=== PATIENT | female | born 1965 ===

== ENCOUNTER 2019-02-22 11:45 | Day surgery (SDC) | payer BC ==
[~2019-02-22 11:45] MED LIST: Clindamycin Phosphate in D5W 300 MG in Premix Bag 1 BAG IV ONE
--- NOTE | 2019-02-22 12:25 | PCM.PREANE ---
Preanesthetic Assessment - Anesthesia/Transfusion/Family Hx Anesthesia History: Prior Anesthesia Without Reaction Family History of Anesthesia Reaction: No Transfusion History: No Prior Transfusion(s) Intubation History: Unknown - Review of Systems General: No Symptoms Pulmonary: No Symptoms Cardiovascular: No Symptoms Gastrointestinal: No Symptoms Neurological: No Symptoms Other: Reports: None - Physical Assessment Height: 5 ft 4 in Weight: 65.771 kg ASA Class: 2 Mental Status: Alert & Oriented x3 Airway Class: Mallampati = 2 Dentition: Reports: Normal Dentition Thyro-Mental Finger Breadths: 3 Mouth Opening Finger Breadths: 3 ROM/Head Extension: Full Lungs: Clear to Auscultation, Normal Respiratory Effort Cardiovascular: Regular Rate, Regular Rhythm - Allergies Allergies/Adverse Reactions: Allergies Allergy/AdvReac Type Severity Reaction Status Date / Time adhesive tape Allergy Redness Verified 02/18/19 12:51 aspirin Allergy Anaphylactic Verified 02/18/19 12:51 Shock banana Allergy Rash Verified 02/18/19 12:51 kiwi Allergy Rash Verified 02/18/19 12:51 latex Allergy Rash Verified 02/18/19 12:51 Penicillins Allergy Hives Verified 02/18/19 12:51 spironolactone Allergy Hives Verified 02/18/19 12:51 - Blood Blood Available: No - Anesthesia Plan Pre-Op Medication Ordered: None - Acknowledgements Anesthesia Type Planned: MAC Pt an Appropriate Candidate for the Planned Anesthesia: Yes Alternatives and Risks of Anesthesia Discussed w Pt/Guardian: Yes Pt/Guardian Understands and Agrees with Anesthesia Plan: Yes PreAnesthesia Questionnaire HEENT History: Reports: Other (See Below) Other HEENT History: wears glasses Cardiovascular History: Reports: Other (See Below) Other Cardiovascular History: hx of superficial blood clot in left calf- no treatment Respiratory History: Reports: Asthma (mild) Other Respiratory History: rarely uses inhaler Gastrointestinal History: Reports: Chronic Constipation, Other (See Below) Other Gastrointestinal History: occasional heartburn- takes OTC meds 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: Reports: Endometriosis Musculoskeletal History: Reports: Back Pain, Chronic, Fracture, Fibromyalgia Other Musculoskeletal History: hx of fx left wrist Neurological History: Reports: Migraines Psychiatric History: Reports: Anxiety, Depression Endocrine/Metabolic History: Reports: Hypothyroidism - Past Surgical History Head Surgeries/Procedures: Reports: None GI Surgical History: Reports: Appendectomy, Colonoscopy, EGD Female Surgical History: Reports: Hysterectomy Neurological Surgical History: Reports: Lumbar Spine, Spinal Fusion Musculoskeletal Surgical History: Reports: Other (See Below) Other Musculoskeletal Surgeries/Procedures:: excision of neuroma and metatarsal osteotomy right foot, tenotomy left 4th toe, hammer toe repair left foot - SUBSTANCE USE Smoking Status *Q: Former Smoker Tobacco Use Within Last Twelve Months: No Recreational Drug Use History: No - HOME MEDS Home Medications: Home Meds Albuterol [Proventil HFA] 2 puff INH QID PRN 02/18/19 [History] Baclofen 5 - 10 mg PO TID PRN 02/18/19 [History] Calcium Lactate 600 mg PO DAILY 02/18/19 [History] Cetirizine [ZyrTEC] 20 mg PO DAILY 02/18/19 [History] Cholecalciferol (Vitamin D3) [Vitamin D3] 5,000 unit PO DAILY 02/18/19 [History] Cyanocobalamin/FA/Pyridoxine [Folbic] 1 tab PO BID 02/18/19 [History] DULoxetine [Cymbalta] 60 mg PO BID 02/18/19 [History] Fish Oil/Faulkner-3 Fatty Acids [Fish Oil 1,000 MG] 1,000 mg PO DAILY 02/18/19 [ History] Levothyroxine 75 mcg PO DAILY 02/18/19 [History] Liothyronine [Cytomel] 12.5 mcg PO DAILY 02/18/19 [History] Montelukast [Singulair] 10 mg PO QPM 02/18/19 [History] Multivitamin [Multi-Vitamin Daily] 1 tab PO DAILY 02/18/19 [History] SUMAtriptan [Imitrex] 50 mg PO ASDIRECTED PRN 02/18/19 [History] Topiramate [Topamax] 100 mg PO DAILY 02/18/19 [History] Venlafaxine [Effexor] 75 mg PO DAILY 02/18/19 [History] oxyCODONE 5 mg PO QID PRN 02/18/19 [History] traZODone HCl [Trazodone HCl] 100 mg PO BEDTIME PRN 02/18/19 [History] - CURRENT (IN HOUSE) MEDS Current Meds: Current Medications Discontinued Medications Clindamycin Phosphate 300 mg/ (Premix) 50 mls @ 96.154 mls/hr IV ONETIME ONE Stop: 02/22/19 11:20 Lidocaine HCl (Xylocaine-Mpf 1%) 10 ml INJECT ONETIME ONE Stop: 02/22/19 10:48
[2019-02-22] MEDS ORDERED: fentaNYL 100 MCG/2 ML SDV ONE (12:56)
[2019-02-22] MEDS ORDERED: fentaNYL 250 MCG/5 ML SDV ONE (12:56)
[2019-02-22] MEDS ORDERED: Midazolam 1 MG/ML 2 ML SDV ONE (12:56)
[2019-02-22] MEDS ORDERED: Propofol 200 MG/20 ML SDV ONE (12:56)
[2019-02-22] MEDS ORDERED: Lidocaine 2% 5 ML SDV ONE (12:59)
[2019-02-22] MEDS ORDERED: Clindamycin Phosphate in D5W 300 MG in Premix Bag 1 BAG IV ONE ×2 (13:15)
--- NOTE | 2019-02-22 14:06 | PCM.POSTAN ---
POST ANESTHESIA ASSESSMENT - MENTAL STATUS Mental Status: Alert, Oriented - RESPIRATORY Respiratory Status: Respiratory Rate WNL, Airway Patent, O2 Saturation Stable - CARDIOVASCULAR CV Status: Pulse Rate WNL, Blood Pressure Stable - GASTROINTESTINAL GI Status: No Symptoms - PAIN Pain Score: 0 - POST OP HYDRATION Hydration Status: Adequate & Stable - OBSERVATIONS Free Text/Narrative:: no anesthesia problems, patient skipped recovery room stage of postoperative care
--- NOTE | 2019-02-22 17:35 | OR ---
SURGEON: Jackie Corrales D.O. DATE OF PROCEDURE: 02/22/2019 PRIMARY SURGEON: Jackie Corrales D.O. ASSISTANTS: OR staff present: 1. Navi Montesinos. 2. Eliz Jiménez. 3. Vibha Rocha. 4. technical administrator. PREOPERATIVE DIAGNOSES: 1. Failed back surgery syndrome. 2. Chronic lumbar radiculopathy. 3. Chronic low back pain. POSTOPERATIVE DIAGNOSES: 1. Failed back surgery syndrome. 2. Chronic lumbar radiculopathy. 3. Chronic low back pain. PROCEDURES PERFORMED: 1. Casengo Infinion 16, 50 cm, 16-contact trial lead placed to the top of T7 midline. 2. Fluoroscopic guidance for needle placement. 3. Local with MAC sedation. ANESTHESIA: Monitored anesthesia care with REPAIR SERVICER. SCREENING QUESTIONS: The patient answered no to all the following questions: 1. Are you allergic to iodine, Betadine, or latex? 2. Do you have a bleeding disorder? 3. Are you on anti-inflammatories or blood thinners? 4. Are you ? 5. Do you have any current local or systemic infections? 6. Do you have any joint replacements, heart valve replacements or a pacemaker? DESCRIPTION OF PROCEDURE: The patient had the procedure thoroughly explained including risks, benefits, and alternatives. Consent was signed in my clinic indicating understanding and willingness to proceed. The patient presented to [facility] and was escorted to the dressing room to disrobe and change into a hospital gown. Preoperative history and screening were performed by the nurse. Vital signs were taken and stable. The patient was set up with an IV prior to the procedure. The patient was brought back to the procedure room and placed in the prone position on the procedure room table. A pillow was placed under the abdomen in order to flatten the lumbar lordosis. The patient was positioned comfortably and there was no evidence of infection at the sites of needle insertion. The back was prepped with ChloraPrep and sterilely draped. All personnel in the operating room were dressed in appropriate attire including surgical scrubs, head and shoe covers. This was to ensure sterility while in the treatment room. During the time fluoroscopy was in use, all personnel in the operating room wore lead casanova with thyroid collars. Sterile technique was used during the procedure. Prior to the start of the procedure, prophylactic antibiotic was administered IV. Skeletal landmarks were identified under fluoroscopic guidance. At all insertion sites, the skin and soft tissues were anesthetized with 2% lidocaine preservative-free with a sterile 27-gauge 1-1/2 inch needle. The epidural space was entered with a 14-gauge Tuohy epidural needle with loss-of- resistance technique. Under live fluoroscopic guidance, the 16 standard contact lead electrodes were advanced approximately to the midline at the middle of the T7 vertebral body on the left . No CSF, no heme, and no paresthesia were noted. Then the right sided lead was attempted and aborted after the patient complained of discomfort and was moving and not cooperating with placement. She was minimally sedated and requested that we stop and then placement of second lead was aborted. I then placed the previous lead to the midline at the middle of T7. The lead was reviewed in AP ,lateral positions. Testing by the neuromodulation clinical specialist revealed coverage of low back and inner thigh areas only. The patient wanted to stop the testing secondary to discomfort on the operating table and plan was to finish programming if acceptable in recovery room. The lead was then secured to the skin with occlusive dressing. No complications were noted throughout the procedure and vital signs were stable. Then the patient was brought to the recovery room in stable condition. At that time, the patient had additional stimulation patterns programmed which covered low back and inner leg areas of pain. Then high frequency programming was done for overnight stimulation. The patient tolerated the procedure and was released home with postoperative instructions for followup in the clinic at 9 am. The patient will fill out a pain diary throughout the week of the spinal cord stimulator trial. Additionally, prior to discharge, postoperative instructions were given to the patient and the patient voiced understanding, including understanding of those signs and symptoms that would require emergency care. ANGELES / SANTA /[id number] LALO
== END 2019-02-22 15:30 | disposition home or self-care (01) ==
LOC: MW.SDS 11:45
PROVIDERS: ATTEND Anesthesiology
DX: G89.29 Other chronic pain (principal); M96.1 Postlaminectomy syndrome, not elsewhere classified; M43.27 Fusion of spine, lumbosacral region; M51.16 Intervertebral disc disorders with radiculopathy, lumbar region; J45.909 Unspecified asthma, uncomplicated; G43.909 Migraine, unspecified, not intractable, without status migrainosus; E03.9 Hypothyroidism, unspecified; Z87.891 Personal history of nicotine dependence; Z88.6 Allergy status to analgesic agent; Z91.040 Latex allergy status; Z88.0 Allergy status to penicillin; Z88.8 Allergy status to other drugs, medicaments and biological substances; Z79.899 Other long term (current) drug therapy; Z91.018 Allergy to other foods
CPT/HCPCS: 63650; 76000; C1778; J2001; J2250; J2704; J3010

== ENCOUNTER 2020-01-31 10:45 | Day surgery (SDC) | payer BC ==
[2020-01-31] MEDS ORDERED: Ropivacaine 0.5% 5 MG/ML 30 ML SDV INJECT ONE (12:00)
[2020-01-31] MEDS ORDERED: Iopamidol 200-M 10 ML vial ITHECAL ONE (12:00)
[2020-01-31] MEDS ORDERED: Lidocaine 2% 5 ML SDV INJECT ONE (12:00)
[2020-01-31] MEDS ORDERED: Betamethasone Acetate/Betamethasone Sod Phosphate 30 MG/5 ML MDV EPIDUR ONE (12:00)
--- NOTE | 2020-01-31 17:25 | OR ---
SURGEON: Jackie Corrales D.O. DATE OF PROCEDURE: 01/31/2020 PRIMARY SURGEON: Jackie Corrales DO ASSISTANTS: 1. Yuliana Dias RN. 2. Tammie Arzate RN. 3. RT Carey. WOUND CLASS: I. PREOPERATIVE DIAGNOSES: 1. Thoracic facet arthropathy, bilateral T8-9, T9-10 3. Thoracic spondylosis. 4. Thoracic degenerative disk disease. POSTOPERATIVE DIAGNOSES: 1. Thoracic facet arthropathy, bilateral 2 T8-9, T9-10 3. Thoracic spondylosis. 4. Thoracic degenerative disk disease. 5. Left suspicious parenchymal lung mass. PROCEDURES PERFORMED: 1. Right O0oknefa branch block. 2. Left T8 medial branch block. 3. Right T9 medial branch block. 4. Left T9 medial branch block. 5. Fluoroscopic guidance for needle placement. 6. Local with oral Valium for sedation. SCREENING QUESTIONS: The patient answered "No" to all the following questions: 1. Are you allergic to iodine, Betadine or latex? 2. Do you have a bleeding disorder? 3. Are you on anti-inflammatories or blood thinners? 4. Do you have any current local or systemic infections? DESCRIPTION OF PROCEDURE: The patient had the procedure thoroughly explained including risks, benefits and alternatives. Consent was signed in my clinic indicating understanding and willingness to proceed. The patient presented to [facility] and was escorted to the dressing room to disrobe and change into a hospital gown. Preoperative history and screening were performed by my nurse. Vital signs were taken and stable. The patient reported that Valium 10 milligrams was taken prior to the procedure. The patient was brought back to the procedure room and placed in the prone position on the procedure room table. A pillow was placed under the abdomen in order to flatten the lumbar lordosis. The back was prepped with ChloraPrep and sterilely draped. All personnel in the procedure room were dressed in appropriate attire including surgical scrubs, head and shoe covers. This was to ensure sterility while in the treatment room. During the time fluoroscopy was in use all personnel in the operating room wore lead casanova with thyroid collars. Sterile technique was used during the procedure. Then the fluoroscope was positioned to provide a right oblique view for the right T8 medial branch. This was begun by anesthetizing the skin and soft tissues. The fluoroscope was positioned and a sterile 22-gauge 3.5 inch needle was placed at the superior lateral junction of the T9 transverse process. Precise needle placement was confirmed by fluoroscopy. Then 0.2 cubic centimeters of IsoVue-200 contrast dye was injected through microbore tubing under live fluoroscopy and showed no intravascular flow pattern and adequate flow over the target T8 medial branch. After negative aspiration, 1.0 cubic centimeters of celestone 0.5% Ropivacaine was injected without complications. The procedure was repeated as above for the left T8 medial branch block. Then the fluoroscope was positioned for the right T9 medial branch block. This was begun by anesthetizing the skin and soft tissues. Then with fluoroscopic guidance a sterile 22-gauge 3.5 inch spinal needle was positioned at the superior lateral junction of the T10 transverse process for the T9 medial branch block. Precise needle placement was confirmed with 0.2 cubic centimeters of IsoVue-200 contrast dye injected through microbore tubing under live fluoroscopy showing no intravascular flow pattern and adequate flow over the target T9 nerve. Then 1.0 cubic centimeters of celestone and 0.5% Ropivacaine was injected after negative aspiration without complications. The procedure was well tolerated and vital signs were stable during and after the procedure. Incidental finding of left lung mass on fluoroscopy and chest x-ray ordered which was negative. (There was a suspicious mass/ structure in the lung parenchyma on fluoroscopy and a chest x-ray Was done following the procedure to rule out any pathology. Chest x-ray showed interstitial Pattern and no mass was noted.) The staff escorted the patient to the recovery area. The patient was given both oral and written discharge and followup instructions. The patient will follow up with a pain diary which will be evaluated over this evening doing things that would normally cause pain. We will evaluate the efficacy of the diagnostic lumbar medial branch blocks as the patient will follow up in the clinic the next day. The patient was given both oral and written discharge and followup instructions. The patient voiced understanding including understanding of those signs and symptoms that would require emergency care and knows how to contact the office if there are any questions or concerns in the meantime. PREOPERATIVE PAIN: 8/10. POSTOPERATIVE PAIN: 6/10. FOLLOWUP: In the Pain Clinic in 3 weeks. HOGLCHR / MODL /[id number] LALO
== END 2020-01-31 14:12 ==
LOC: MW.SDS 10:45
PROVIDERS: ATTEND Anesthesiology
DX: G89.4 Chronic pain syndrome (principal); M47.814 Spondylosis without myelopathy or radiculopathy, thoracic region; M51.34 Other intervertebral disc degeneration, thoracic region; M54.16 Radiculopathy, lumbar region; M96.1 Postlaminectomy syndrome, not elsewhere classified; M54.17 Radiculopathy, lumbosacral region; M96.842 Postprocedural seroma of a musculoskeletal structure following a musculoskeletal system procedure; Z88.8 Allergy status to other drugs, medicaments and biological substances; Z88.0 Allergy status to penicillin; Z91.040 Latex allergy status; Z79.899 Other long term (current) drug therapy; Z98.890 Other specified postprocedural states; Z87.891 Personal history of nicotine dependence; Z79.891 Long term (current) use of opiate analgesic
CPT/HCPCS: 64490; 64491; J0702; J2001; J2795; Q9966

== ENCOUNTER 2020-04-04 20:48 | Emergency (ER) | payer BC ==
[2020-04-04] MEDS ORDERED: Sodium Chloride 0.9% 10 ML Syringe FLUSH PRN (21:11)
[2020-04-04] MEDS ORDERED: Sodium Chloride 0.9% 2.5 ML Syringe FLUSH PRN (21:11)
[2020-04-04] MEDS ORDERED: Acetaminophen/HYDROcodone 325-5 MG Tab PO ONE (21:12)
--- NOTE | 2020-04-04 21:44 | EDM.PDOC ---
ED HPI GENERAL MEDICAL PROBLEM - General Chief Complaint: General Stated Complaint: SICK Time Seen by Provider: 04/04/20 21:03 - History of Present Illness INITIAL COMMENTS - FREE TEXT/NARRATIVE: HISTORY AND PHYSICAL: History of present illness: This is a 54-year-old female with no significant past medical history except for history of asthma and prior back surgery requiring fusion of L4 L5-S1, who presents ER today complaining of concerns that she might have blood clots in her lower extremities. Patient reports that approximately 2 years ago after her back surgery she had an ultrasound and she was told that she had superficial clots in her lower extremity which did not require anticoagulation. Patient reports that over the last several days she has noticed increasing swelling and pain to her bilateral lower extremities and pain to her bilateral buttock area. Patient denies any recent fevers, shakes, chills, nausea, vomiting, diarrhea, dysuria, frequency, urgency. Patient reports that she is having discomfort in her legs which she would normally take her [place] for but she has been out of her [place]. Patient denies any loss of bowel or bladder function. Patient denies any weakness in her upper or lower extremities. Patient reports that she has been constipated recently has been sitting on the toilet a lot and straining vigorously noted to have a bowel movement. Patient reports that while straining she feels pain shooting down both legs. Review of systems: As per history of present illness and below otherwise all systems reviewed and negative. Past medical history: As per history of present illness and as reviewed below otherwise noncontributory. Surgical history: As per history of present illness and as reviewed below otherwise noncontributory. Social history: No reported history of drug or alcohol abuse. Family history: As per history of present illness and as reviewed below otherwise noncontributory. Physical exam: Constitutional: Patient is oriented to person, place, and time. Appears well- developed and well-nourished. No distress. HEENT: Moist mucous membranes Head: Normocephalic and atraumatic Eyes: Right eye exhibits no discharge. Left eye exhibits no discharge. No scleral icterus Neck: Normal range of motion. No tracheal deviation present. Cardiovascular: Normal rate and regular rhythm. Pulmonary: Effort normal, no respiratory distress. Abdominal: No distention Musculoskeletal: Normal range of motion Neurologic: Alert and oriented to person, place and time. Skin: [place], warm and dry. Psychiatric: Normal mood and affect. Behavior is normal. Judgment and thought content normal. Nursing note and vital signs have been reviewed Patient's ER physical exam is significant for bilateral lower extremity tenderness to palpation. Patient has no asymmetrical edema. Patient has 1+ bipedal edema. Patient's pulses are 2+ and bounding bilaterally in her DP/PTs. Patient has tenderness to palpation to her lower back which she reports is chron ic. Patient has normal gait. Patient's neuro exam is normal and is 5 out of 5 in her upper and lower extremities. This patient was seen and evaluated during the 2019 SARS-CoV-2 novel coronavirus pandemic period. Community viral transmission is ongoing at time of this encounter and the emergency department is operating under pandemic response procedures. Diagnostics: Bilateral lower extremities negative for DVT BNP within normal limits All electrolytes within normal limits D-dimer slightly elevated at 0.55. However given negative ultrasound and no pulmonary symptoms do not feel that further work-up for pulmonary embolism would be indicated. Therapeutics: [place] 5/325 2 tablets p.o. given with significant improvement in her symptoms. Assessment and plan: 54-year-old female who presents ER today with concerns that she might have a DVT. Although patient reports that she did have a DVT in the past it appears that it was a superficial clot and patient was not started on any anticoagulants at that time. Patient's ultrasound today did not reveal any evidence of DVT. Patient did have a slightly elevated D-dimer however with a negative ultrasound and no pulmonary symptoms no further work-up is indicated at this time. Patient be discharged home with further evaluation by her primary care physician. Etiology of her lower extremity edema as well as her pain is unclear at this time however no acute emergent causes been identified here in the ED. Patient's BNP is within normal limits. Patient's electrolytes and renal function are normal. Patient has normal LFTs. Patient stable for discharge at this time. Reassessment at the time of disposition demonstrates that the patient is in no acute distress. The patient has remained stable throughout the entire ED visit and is without objective evidence for acute process requiring urgent intervention or hospitalization. The patient is stable for discharge, counseling is provided as documented above, discussed symptomatic treatment and specific conditions for return. I have spoken with the patient/caregiver and discussed todays findings, in addition to providing specific details for the plan of care. Questions are answered and there is agreement with the plan. Definitive disposition and diagnosis as appropriate pending reevaluation and review of above. Bilateral Lower Leg Pain Score (Numeric/FACES): 10 - Related Data Allergies Allergy/AdvReac Type Severity Reaction Status Date / Time adhesive tape Allergy Redness Verified 04/04/20 20:57 aspirin Allergy Anaphylactic Verified 04/04/20 20:57 Shock banana Allergy Rash Verified 04/04/20 20:57 gabapentin Allergy Headache Verified 04/04/20 20:57 kiwi Allergy Rash Verified 04/04/20 20:57 latex Allergy Rash Verified 04/04/20 20:57 Penicillins Allergy Hives Verified 04/04/20 20:57 spironolactone Allergy Hives Verified 04/04/20 20:57 Home Meds: Home Meds Albuterol [Proventil HFA] 2 puff INH QID PRN 02/18/19 [History] Calcium Lactate 600 mg PO DAILY 02/18/19 [History] Cetirizine [ZyrTEC] 20 mg PO DAILY 02/18/19 [History] Cholecalciferol (Vitamin D3) [Vitamin D3] 5,000 unit PO DAILY 02/18/19 [History] Cyanocobalamin/FA/Pyridoxine [Folbic] 1 tab PO BID 02/18/19 [History] Fish Oil/[place]-3 Fatty Acids [Fish Oil 1,000 MG] 1,000 mg PO DAILY 02/18/19 [History] Levothyroxine 125 mcg PO DAILY 02/18/19 [History] Liothyronine [Cytomel] 25 mcg PO DAILY 02/18/19 [History] Montelukast [Singulair] 10 mg PO QPM PRN 02/18/19 [History] Multivitamin [Multi-Vitamin Daily] 1 tab PO DAILY 02/18/19 [History] SUMAtriptan [Imitrex] 50 mg PO ASDIRECTED PRN 02/18/19 [History] Topiramate [Topamax] 150 mg PO DAILY 02/18/19 [History] Venlafaxine [Effexor] 75 mg PO BID 02/18/19 [History] oxyCODONE 5 mg PO QID PRN 02/18/19 [History] traZODone HCl [Trazodone HCl] 100 mg PO BEDTIME PRN 02/18/19 [History] busPIRone [Buspar] 20 mg PO BID 04/04/20 [History] methocarbamoL [Methocarbamol] 750 mg PO TID 04/04/20 [History] Past Medical History HEENT History: Reports: Other (See Below) Other HEENT History: wears glasses Cardiovascular History: Reports: Other (See Below) Other Cardiovascular History: hx of superficial blood clot in left calf- no treatment Respiratory History: Reports: Asthma (mild) Other Respiratory History: rarely uses inhaler Gastrointestinal History: Reports: Chronic Constipation, Other (See Below) Other Gastrointestinal History: occasional heartburn- takes OTC meds [employer]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: Endometriosis Musculoskeletal History: Reports: Back Pain, Chronic, Fracture, Fibromyalgia Other Musculoskeletal History: hx of fx left wrist Neurological History: Reports: Migraines Psychiatric History: Reports: Anxiety, Depression Endocrine/Metabolic History: Reports: Hypothyroidism - Past Surgical History Head Surgeries/Procedures: Reports: None GI Surgical History: Reports: Appendectomy, Colonoscopy, EGD Female Surgical History: Reports: Hysterectomy Neurological Surgical History: Reports: Lumbar Spine, Spinal Fusion Musculoskeletal Surgical History: Reports: Other (See Below) Other Musculoskeletal Surgeries/Procedures:: excision of neuroma and metatarsal osteotomy right foot, tenotomy left 4th toe, hammer toe repair left foot ED ROS GENERAL - Review of Systems Review Of Systems: See Below ED EXAM, GENERAL - Physical Exam Exam: See Below Course - Vital Signs Last Recorded V/S: Last Vital Signs Temp 97.1 F 04/04/20 21:16 Pulse 79 04/04/20 21:16 Resp 18 04/04/20 21:16 BP 119/70 04/04/20 21:16 Pulse Ox 95 04/04/20 21:16 - Orders/Labs/Meds Orders: Active Orders 24 hr Category Date Time Status Sodium Chloride 0.9% [Saline Flush] Med 04/04/20 21:11 Active 10 ml FLUSH ASDIRECTED PRN Sodium Chloride 0.9% [Saline Flush] Med 04/04/20 21:11 Active 2.5 ml FLUSH ASDIRECTED PRN Saline Lock Insert [OM.PC] Stat Oth 04/04/20 21:11 Ordered Medication Orders Sodium Chloride (Saline Flush) 10 ml FLUSH ASDIRECTED PRN PRN Reason: Keep Vein Open Last Admin: 04/04/20 21:23 Dose: 10 ml Documented by: DONN Sodium Chloride (Saline Flush) 2.5 ml FLUSH ASDIRECTED PRN PRN Reason: Keep Vein Open Last Admin: 04/04/20 21:23 Dose: 2.5 ml Documented by: DONN Labs: Laboratory Tests 04/04/20 04/04/20 04/04/20 Range/Units 21:47 21:47 21:47 WBC 5.30 (4.0-11.0) K/uL RBC 4.49 (4.30-5.90) M/uL Hgb 12.4 (12.0-16.0) g/dL Hct 37.6 (36.0-46.0) % MCV 83.7 (80.0-98.0) fL MCH 27.6 (27.0-32.0) pg MCHC 33.0 (31.0-37.0) g/dL RDW Std Deviation 41.8 (28.0-62.0) fl RDW Coeff of Davey 14 (11.0-15.0) % Plt Count 204 (150-400) K/uL MPV 11.90 (7.40-12.00) fL Neut % (Auto) 44.9 L (48.0-80.0) % Lymph % (Auto) 41.7 H (16.0-40.0) % Randolph % (Auto) 10.2 (0.0-15.0) % Eos % (Auto) 2.8 (0.0-7.0) % Baso % (Auto) 0.4 (0.0-1.5) % Neut # (Auto) 2.4 (1.4-5.7) K/uL Lymph # (Auto) 2.2 (0.6-2.4) K/uL Randolph # (Auto) 0.5 (0.0-0.8) K/uL Eos # (Auto) 0.2 (0.0-0.7) K/uL Baso # (Auto) 0.0 (0.0-0.1) K/uL Nucleated RBC % 0.0 /100WBC Nucleated RBCs # 0 K/uL D-Dimer, Quantitative 0.55 H (0.0-0.50) mg/L FEU Sodium 142 (136-145) mmol/L Potassium 3.4 L (3.5-5.1) mmol/L Chloride 109 H (98-107) mmol/L Carbon Dioxide 23.8 (21.0-32.0) mmol/L BUN 11 (7.0-18.0) mg/dL Creatinine 0.9 (0.6-1.0) mg/dL Est Cr Clr Drug Dosing 63.14 mL/min Estimated GFR (MDRD) > 60.0 ml/min Glucose 90 (74-106) mg/dL Calcium 8.7 (8.5-10.1) mg/dL Total Bilirubin 0.3 (0.2-1.0) mg/dL AST 22 (15-37) IU/L ALT 33 (14-63) IU/L Alkaline Phosphatase 53 (46-116) U/L B-Natriuretic Peptide (<100) PG/ML Total Protein 6.3 L (6.4-8.2) g/dL Albumin 3.3 L (3.4-5.0) g/dL Globulin 3.0 (2.6-4.0) g/dL Albumin/Globulin Ratio 1.1 (0.9-1.6) 04/04/ Range/Units 21:47 WBC (4.0-11.0) K/uL RBC (4.30-5.90) M/uL Hgb (12.0-16.0) g/dL Hct (36.0-46.0) % MCV (80.0-98.0) fL MCH (27.0-32.0) pg MCHC (31.0-37.0) g/dL RDW Std Deviation (28.0-62.0) fl RDW Coeff of Davey (11.0-15.0) % Plt Count (150-400) K/uL MPV (7.40-12.00) fL Neut % (Auto) (48.0-80.0) % Lymph % (Auto) (16.0-40.0) % Randolph % (Auto) (0.0-15.0) % Eos % (Auto) (0.0-7.0) % Baso % (Auto) (0.0-1.5) % Neut # (Auto) (1.4-5.7) K/uL Lymph # (Auto) (0.6-2.4) K/uL Randolph # (Auto) (0.0-0.8) K/uL Eos # (Auto) (0.0-0.7) K/uL Baso # (Auto) (0.0-0.1) K/uL Nucleated RBC % /100WBC Nucleated RBCs # K/uL D-Dimer, Quantitative (0.0-0.50) mg/L FEU Sodium (136-145) mmol/L Potassium (3.5-5.1) mmol/L Chloride (98-107) mmol/L Carbon Dioxide (21.0-32.0) mmol/L BUN (7.0-18.0) mg/dL Creatinine (0.6-1.0) mg/dL Est Cr Clr Drug Dosing mL/min Estimated GFR (MDRD) ml/min Glucose (74-106) mg/dL Calcium (8.5-10.1) mg/dL Total Bilirubin (0.2-1.0) mg/dL AST (15-37) IU/L ALT (14-63) IU/L Alkaline Phosphatase (46-116) U/L B-Natriuretic Peptide 36 (<100) PG/ML Total Protein (6.4-8.2) g/dL Albumin (3.4-5.0) g/dL Globulin (2.6-4.0) g/dL Albumin/Globulin Ratio (0.9-1.6) Meds: Medications Generic Name Dose Route Start Last Admin Trade Name Sawyer PRN Reason Stop Dose Admin Sodium Chloride 10 ml 04/04/20 21:11 04/04/20 21:23 Saline Flush FLUSH 10 ml ASDIRECTED PRN Administration Keep Vein Open Sodium Chloride 2.5 ml 04/04/20 21:11 04/04/20 21:23 Saline Flush FLUSH 2.5 ml ASDIRECTED PRN Administration Keep Vein Open Discontinued Medications Generic Name Dose Route Start Last Admin Trade Name Freq PRN Reason Stop Dose Admin Hydrocodone Bitart/Acetaminophen 2 tab 04/04/20 21:12 04/04/20 21:22 [place] 325-5 Mg PO 04/04/20 21:13 2 tab ONETIME ONE Administration Departure - Departure Time of Disposition: 23:28 Disposition: Home, Self-Care 01 Condition: Good Clinical Impression: Peripheral edema, Lower extremity pain, bilateral - Discharge Information Instructions: Edema, [id number] Referrals: Zoya Hines VAL[employer] STEAMER [Primary Care Provider] - Forms: ED Department Discharge Additional Instructions: You were seen and evaluated in the ER today secondary to pain and swelling to your lower extremities. All your blood tests were within normal limits. Your ultrasound of your legs did not reveal any evidence of any blood clots. We have not identified any emergent causes and thus the etiology of the swelling is unclear at this time. You will need to follow-up with your family doctor for further evaluation and investigation for causes. The following information is given to patients seen in the emergency department who are being discharged to home. This information is to outline your options for follow-up care. We provide all patients seen in our emergency department with a follow-up referral. The need for follow-up, as well as the timing and circumstances, are variable depending upon the specifics of your emergency department visit. If you don't have a primary care physician on staff, we will provide you with a referral. We always advise you to contact your personal physician following an emergency department visit to inform them of the circumstance of the visit and for follow-up with them and/or the need for any referrals to a consulting specialist. The emergency department will also refer you to a specialist when appropriate. This referral assures that you have the opportunity for follow-up care with a specialist. All of these measure are taken in an effort to provide you with optimal care, which includes your follow-up. Under all circumstances we always encourage you to contact your private physician who remains a resource for coordinating your care. When calling for follow-up care, please make the office aware that this follow-up is from your recent emergency room visit. If for any reason you are refused follow-up, please contact the [facility] Emergency Department at and asked to speak to the emergency department charge nurse. [facility] [address] [place] [id number] [facility] [address] [place] [id number] Sepsis Event Note (ED) - Evaluation Sepsis Screening Result: No Definite Risk - Focused Exam Vital Signs: Vital Signs Temp Pulse Resp BP Pulse Ox 04/04/20 21:16 97.1 F 79 18 119/70 95 - My Orders Last 24 Hours: My Active Orders 04/04/20 21:11 Sodium Chloride 0.9% [Saline Flush] 10 ml FLUSH ASDIRECTED PRN Sodium Chloride 0.9% [Saline Flush] 2.5 ml FLUSH ASDIRECTED PRN Saline Lock Insert [OM.PC] Stat - Assessment/Plan Last 24 Hours: My Active Orders 04/04/20 21:11 Sodium Chloride 0.9% [Saline Flush] 10 ml FLUSH ASDIRECTED PRN Sodium Chloride 0.9% [Saline Flush] 2.5 ml FLUSH ASDIRECTED PRN Saline Lock Insert [OM.PC] Stat
[2020-04-04 22:19] LABS: BLOOD UREA NITROGEN,BUN 11 mg/dL (7.0-18.0); CARBON DIOXIDE,CO2 23.8 mmol/L (21.0-32.0); CHLORIDE,CL 109 mmol/L (98-107); GLUCOSE RANDOM 90 mg/dL (74-106); POTASSIUM,K 3.4 mmol/L (3.5-5.1); SODIUM,NA 142 mmol/L (136-145)
--- NOTE | 2020-04-04 22:38 | US ---
INDICATION: Edema both legs worse on left leg TECHNIQUE: Ultrasound venous duplex bilateral lower extremities. Bhardwaj-scale, color Doppler, and spectral Doppler imaging were performed with compression and augmentation. COMPARISON: 04/28/2018 FINDINGS: Deep veins: The bilateral common femoral, femoral, popliteal, and visualized calf veins are fully compressible, demonstrate normal color flow, and normal response to mechanical augmentation. The Duplex Doppler waveforms are normal in appearance. Superficial veins: The visualized greater saphenous and superficial veins of the leg and calf are unremarkable. Soft tissue: No masses or cysts are identified. No adenopathy is seen. IMPRESSION: 1. No sonographic evidence of acute deep venous thrombosis seen in either lower extremities. Dictated by: Vignesh Byrd MD @ 04/04/2020 22:36:49 (Electronically Signed)
== END 2020-04-04 23:40 | disposition home or self-care (01) ==
LOC: MW.ED 20:48
DX: R60.0 Localized edema (principal); E03.9 Hypothyroidism, unspecified; J45.909 Unspecified asthma, uncomplicated; F41.9 Anxiety disorder, unspecified; F32.9 Major depressive disorder, single episode, unspecified; Z88.8 Allergy status to other drugs, medicaments and biological substances; Z91.018 Allergy to other foods; Z91.040 Latex allergy status; Z88.0 Allergy status to penicillin; Z90.710 Acquired absence of both cervix and uterus; Z90.49 Acquired absence of other specified parts of digestive tract
CPT/HCPCS: 36415; 80053; 83880; 85025; 85379; 93970; 99284; A9270; 99283